=== PATIENT | female | born 1965 | race Caucasian/White ===

== ENCOUNTER 2018-09-29 10:14 | Day surgery (SDC) | payer BC ==
[~2018-09-29 10:14] MED LIST: Buffered Lidocaine 1% SYRIN* 1 ML/SYRINGE INTRADERM ONE
[2018-09-29] MEDS ORDERED: Midazolam* 1 MG/ML 2 ML VIAL (2 MG) ONE ×2 (11:15→11:23)
[2018-09-29 11:45] VITALS: BP 108/69
--- NOTE | 2018-09-29 12:55 | OP ---
DATE OF OPERATION/DATE OF DICTATION: 09/29/2018. DATE OF : 1965. SURGEON: Dr. Juan Bean. LOOSE HAND PACKER: None. ANESTHESIA: Topical with intravenous sedation. PRE-OP DIAGNOSIS: Cataract, left eye. POST-OP DIAGNOSIS: Cataract, left eye. OPERATIVE PROCEDURE: Phacoemulsification and cataract extraction with posterior chamber intraocular lens implant, left eye. COMPLICATIONS: None. BLOOD LOSS: None. OPERATIVE FINDINGS: The patient was brought to the operating room and received a small amount of int ravenous sedation. A drop of Tetracaine was placed in her left eye. She was prepped and draped in t he usual sterile fashion for ophthalmic surgery and attention was directed to the left eye where a sp eculum was placed. A paracentesis was created at the 5 o'clock position and 0.1 cc of 1 percent pres ervative-free Lidocaine was injected into the anterior chamber followed by DisCoVisc. The eye was di gitally stabilized while a 2.75 mm keratome was used to create a triplanar clear corneal incision at the 3 o'clock position. A continuous curvilinear capsulorrhexis was created with a cystotome and Utr edy forceps. BSS on a cannula was used to hydrodissect the lens from the capsule. Phacoemulsificati on was performed in a ygxtsn-bhn-zbmisur technique to create four fragments which were removed. Resi dual cortical material was removed with irrigation and aspiration. DisCoVisc was used to inflate the capsular bag and an AUOOTO 13.5 diopter lens was folded and inserted into the capsular bag. DisCoVis c was removed using irrigation and aspiration. BSS on a cannula was used to hydrate the corneal stro ma and seal the wound. At the end of the case the pupil was round and the lens was centered. The eye was of normal pressure and the wound was water tight. The speculum was removed and topical Maxitrol ointment was placed on the surface of the eye. The eye was closed, patched and shielded and the pat ient was sent to the recovery room in stable condition with post operative instructions and follow-up appointment given. [id number]/[facility] #: [id number]
[2018-09-29] MEDS ORDERED: Ketorolac 0.5% OPHTH (NF) 0.5 % 5 ML BTL ONE (15:24)
[2018-09-29] MEDS ORDERED: Neomycin/Polymy/Dex OPHTH.OIN* 3.5 GM ONE (15:24)
[2018-09-29] MEDS ORDERED: Lidocaine 1%* 5 ML VIAL ONE (15:24)
[2018-09-29] MEDS ORDERED: Cyclopentolate 1% OPTH.SOL* 2 ML BTL ONE (15:24)
[2018-09-29] MEDS ORDERED: Tropicamide 1% OPTH.SOL* BTL ONE (15:24)
[2018-09-29] MEDS ORDERED: Phenylephrine OPHTH SOL 2.5%* 2 ML ONE (15:24)
[2018-09-29] MEDS ORDERED: Tetracaine 0.5% OPTH.SOL 4 ML* 1 DROP BTL ONE (15:24)
== END 2018-09-29 11:52 | disposition home or self-care (01) ==
LOC: OREAST 10:14
PROVIDERS: ATTEND Ophthalmology
DX: H25.13 Age-related nuclear cataract, bilateral (principal); K64.0 First degree hemorrhoids; Z88.0 Allergy status to penicillin; Z91.040 Latex allergy status; Z13.220 Encounter for screening for lipoid disorders
CPT/HCPCS: 81025; A9270-GY; J2250; V2632

== ENCOUNTER 2018-10-06 07:56 | Day surgery (SDC) | payer BC ==
[~2018-10-06 07:56] MED LIST changes: +Acetaminophen TAB* 325 MG PO PRN
[2018-10-06] MEDS ORDERED: Midazolam* 1 MG/ML 5 ML VIAL (5 MG) ONE (09:13)
[2018-10-06 10:15] VITALS: BP 104/76
--- NOTE | 2018-10-06 11:09 | OP ---
OPERATIVE REPORT: DATE OF OPERATION: 10/06/18 DATE OF : [birth year] SURGEON: Dr. Juan Bean LIBRARIAN: None. ANESTHESIA: Topical with intravenous sedation. PRE-OP DIAGNOSIS: Cataract, right eye with astigmatism. POST-OP DIAGNOSIS: Cataract, right eye with astigmatism. OPERATIVE PROCEDURE: Phacoemulsification and cataract extraction with posterior chamber toric intrao cular lens implant, right eye. COMPLICATIONS: None. BLOOD LOSS: None. OPERATIVE FINDINGS: The patient was seen preoperatively where a genevieve was made at 6 o'clock position of the limbus of the right eye while the patient was in an upright position. The patient was subsequ ently brought to the operating room and received intravenous sedation as well as a drop of tetracaine to the right eye. The patient was prepped and draped in the usual sterile fashion for ophthalmic bravo rgery and attention was directed to the right eye where a speculum was placed. A paracentesis was cr eated at the 11 o'clock position and 0.1 cc of 1% preservative- free lidocaine was injected into the anterior chamber followed by DisCoVisc. The eye was digitalized stabilized where a 2.75 mm keratome was used to create a triplanar clear corneal incision at the 9 o'clock position. A continuous curvil inear capsulorrhexis was created with a cystotome and Utrata forceps. BSS on a cannula was used to h ydrodissect the lens from the capsule. Phacoemulsification was performed in a xomoot-bfl-mpdchvg eneida hnique to create 4 fragments, which were removed. Residual cortical material was removed with irriga tion and aspiration. ProVisc was used to inflate the capsular bag. The eye pressure was checked with intraoperative tonometer and the surface of the eye was lubricated. The ORA instrument was employed to help guide the lens choice. An [id number], 13 diopter lens was selected guided by the reticule, the lens was placed and aligned at the 26 degree axis. The lens was stabilized using the Sinskey hook fo r the paracentesis while irrigation aspiration was performed to remove viscoelastic in the eye. The Sinskey hook was removed. BSS and the cannula was used to hydrate the corneal stroma and seal the wo und. At the end of the case, the pupil was round. The lens was center and stable on the axial line. The eye pressured appeared normal and the wound is water tight. The speculum was removed and topic al Maxitrol ointment was placed on the surface of the eye. The eye was closed, patched and shielded and the patient was sent to the recovery room in stable condition with postoperative instructions and followup appointment given. [id number]/[facility] #: [id number]
[2018-10-06] MEDS ORDERED: Cyclopentolate 1% OPTH.SOL* 2 ML BTL ONE (12:12)
[2018-10-06] MEDS ORDERED: Neomycin/Polymy/Dex OPHTH.OIN* 3.5 GM ONE (12:12)
[2018-10-06] MEDS ORDERED: Lidocaine 1%* 5 ML VIAL ONE (12:12)
[2018-10-06] MEDS ORDERED: Ketorolac 0.5% OPHTH (NF) 0.5 % 5 ML BTL ONE (12:12)
[2018-10-06] MEDS ORDERED: Phenylephrine OPHTH SOL 2.5%* 2 ML ONE (12:12)
[2018-10-06] MEDS ORDERED: Tetracaine 0.5% OPTH.SOL 4 ML* 1 DROP BTL ONE (12:12)
[2018-10-06] MEDS ORDERED: Tropicamide 1% OPTH.SOL* BTL ONE (12:12)
== END 2018-10-06 10:05 | disposition home or self-care (01) ==
LOC: OREAST 07:56
PROVIDERS: ATTEND Ophthalmology
DX: H25.041 Posterior subcapsular polar age-related cataract, right eye (principal); H52.209 Unspecified astigmatism, unspecified eye; M85.80 Other specified disorders of bone density and structure, unspecified site
CPT/HCPCS: 81025; A9270-GY; J2250; V2787